=== PATIENT | female | born 1990 | race Caucasian/White ===

== ENCOUNTER 2017-05-18 15:58 | Emergency (ER) | payer MEDICAID ==
[~2017-05-18 15:58] MED LIST: JUNETAB PO; MACR100C2 PO
[2017-05-18 15:59] VITALS: BP 128/76; PULSE 112; RESP 20; TEMP 98.3; O2SAT 99
--- NOTE | 2017-05-18 16:12 | PD ---
Physical Exam Time Seen by Provider: 16:10 Narrative 26yo F c/o lower abd pain and painful sex this morning. +Vaginal odor and discharge. Denies fever, vomiting. +possibility of . Patient seen in triage. VS reviewed. Patient awaiting bed placement. Data Data Last Documented VS Vital Signs Date Time Temp Pulse Resp B/P Pulse Ox O2 Delivery O2 Flow Rate FiO2 05/18/17 15:59 98.3 112 20 128/76 99 Room Air MDM Supervised Visit with MYRIAM: Dina Florez May 18, 2017 16:12
[2017-05-18 18:22] LABS: BACTERIA, URINE RARE /hpf; BLOOD, URINE NEG (NEG); COMMENT (UR) CULT NOT INDICATED; CULTURE IF INDICATED CULT NOT INDICATED; GLUCOSE,URINE NEG (NEG); KETONE, URINE NEG (NEG); NITRITE,URINE NEG (NEG); PH, URINE 7.5 (5.0-8.5); SQUAMOUS EPITHELIAL CELL URINE 5 /hpf (0-5); URINE COLOR LIGHT-YELLOW (YELLW/STRAW)
[2017-05-19] MEDS ORDERED: METR-1 PO (00:53)
== END 2017-05-18 18:48 | disposition left against medical advice (07) ==
LOC: NED 15:58
DX: R10.30 Lower abdominal pain, unspecified (principal); N89.8 Other specified noninflammatory disorders of vagina
CPT/HCPCS: 81001; 84703; 99282

== ENCOUNTER 2017-05-18 21:43 | Emergency (ER) | payer MEDICAID ==
[2017-05-18 21:45] VITALS: BP 128/74; PULSE 85; RESP 16; TEMP 98.4; O2SAT 99
--- NOTE | 2017-05-18 22:28 | PD ---
HPI Chief Complaint: Complaint Time Seen by Provider: 22:20 Travel History International Travel<30 days: No Contact w/Intl Traveler<30days: No Traveled to known affect area: No History of Present Illness HPI 26-year-old female patient presents to the ER today for several days history of whitish vaginal discharge and dyspareunia area. She also complains of pelvic discomfort. She is sexually active but states that she is on control. She denies any new partners. She has history of irregular menses, states she had missed her menses this month. Modifying Factors: None Associated Signs & Symptoms: Vaginal discharge, dyspareunia area, irregular menses Risk Factors: None PFSH Past Medical History Medical History: Denies Significant Hx Diminished Hearing: No Tetanus Vaccination: < 5 Years Influenza Vaccination: No ?: Unknown LMP: APRIL 2017 Past Surgical History Surgical History: No Previous Surgery Social History Alcohol Use: No Tobacco Use: No Substance Use: No Allergies-Medications (Allergen,Severity, Reaction): Coded Allergies: No Known Allergies (Verified , 05/18/17) Reported Meds & Prescriptions Reported Meds & Active Scripts Active Review of Systems Except as stated in HPI: all other systems reviewed are Neg Physical Exam Narrative GENERAL: Young white female patient currently in no acute distress. Awake and oriented 3. SKIN: Focused skin assessment warm/dry. HEAD: Atraumatic. Normocephalic. EYES: Pupils equal and round. No scleral icterus. No injection or drainage. ENT: No nasal bleeding or discharge. Mucous membranes pink and moist. NECK: Trachea midline. No JVD. CARDIOVASCULAR: Regular rate and rhythm. No murmur appreciated. RESPIRATORY: No accessory muscle use. Clear to auscultation. Breath sounds equal bilaterally. GASTROINTESTINAL: Abdomen soft, mild pelvic tenderness without guarding or rebound, nondistended. Hepatic and splenic margins not palpable. GENITOURINARY: Normal external genitalia without lesions or erythema. Vaginal vault without blood but is notable for whitish greenish copious drainage. Cervical os was closed with drainage. Positive cervical motion tenderness. Uterus nontender and nonenlarged. Bilateral adnexa nontender without masses. MUSCULOSKELETAL: No obvious deformities. No clubbing. No cyanosis. No edema. NEUROLOGICAL: Awake and alert. No obvious cranial nerve deficits. Motor grossly within normal limits. Normal speech. PSYCHIATRIC: Appropriate mood and affect; insight and judgment normal. Data Data Last Documented VS Vital Signs Date Time Temp Pulse Resp B/P Pulse Ox O2 Delivery O2 Flow Rate FiO2 05/18/17 22:16 16 05/18/17 21:45 98.4 85 128/74 99 Room Air Orders Gc And Chlamydia Pcr (05/18/17 22:20) Wet Prep Profile (05/18/17 22:20) Beta Hcg (Quant/Titer) (05/18/17 22:28) Ceftriaxone Inj (Rocephin Inj) (05/18/17 23:30) Azithromycin Powd Pack (Zithromax Powd P (05/18/17 23:30) Metronidazole (Flagyl) (05/18/17 23:30) Labs Laboratory Tests Test 05/18/17 23:21 Clue Cells (Wet Prep) PRESENT Vaginal Trichomonas (Wet Prep) NONE SEEN Vaginal Yeast (Wet Prep) NONE SEEN MDM Medical Decision Making Medical Screen Exam Complete: Yes Emergency Medical Condition: Yes Medical Record Reviewed: Yes Differential Diagnosis Pelvic pain, discontinue area, vaginal dischargevaginitis versus cervicitis versus UTI versus Narrative Course Patient was seen just a few hours ago and signed out AGAINST MEDICAL ADVICE. A UA and urine has been done which is negative. However, patient states that she has had previous pregnancies where the initial urine test was negative. Pelvic exam is fairly concerning for vaginitis or cervicitis. was given empiric antibiotics for cervicitis. Wet prep returns showing bacterial vaginosis and Flagyl was given. My plan would be to release her at this point would follow-up to primary or [facility]. Return for any worsening in symptoms as needed. The plan was discussed with her and she states understanding. She will need to practice safe sex until we find out about her GC cultures. Diagnosis Primary Impression: Bacterial vaginosis Additional Impression: Vaginitis Med/Other Pt SpecificInfo: Prescription(s) given Scripts Metronidazole (Flagyl)500 Mg Hbu960 Mg PO TID 7 Days Ref 0 Prov:Abhi Gonzalez MD 05/19/17 Disposition: 01 DISCHARGE HOME Condition: Stable Abhi Gonzalez MD May 18, 2017 22:28
[2017-05-18] MEDS ORDERED: metroNIDAZOLE 500 MG TAB PO ONE (23:30)
[2017-05-18] MEDS ORDERED: AZITHROMYCIN PWD FOR SUSP 1 GM PACKET PO ONE (23:30)
[2017-05-18] MEDS ORDERED: cefTRIAXone INJ 250 MG in SODIUM CHLORIDE 0.9% INJ 100 ML IV ONE (23:30)
[2017-05-19] MEDS ORDERED: METR-1 PO (00:53)
[2017-05-19 01:15] LABS: CHLAMYDIA PCR NOT DETECTED (NOT DETECT); NEISSERIA PCR NOT DETECTED (NOT DETECT)
[2017-05-19 01:43] LABS: BETA HCG QUANT LESS THAN 1 MIU/ML (0-5)
== END 2017-05-19 01:18 | disposition home or self-care (01) ==
LOC: NEPC 21:43
DX: N76.0 Acute vaginitis (principal)
CPT/HCPCS: 84702; 87210; 87491; 87591; 96374; 99284; J0696

== ENCOUNTER → 2018-01-18 | Outpatient (CLI) | payer MEDICAID, OTHER ==
[~2018-01-18] MED LIST changes: -JUNETAB PO; -MACR100C2 PO; +METR-1 PO
== END ==
LOC: HPND 12:53
PROVIDERS: ATTEND Family Medicine
DX: Z36.82 Encounter for antenatal screening for nuchal translucency (principal)
CPT/HCPCS: 36415; 76813

== ENCOUNTER → 2018-02-21 | Outpatient (CLI) | payer MEDICAID | LOC: HPND 11:09 | PROVIDERS: ATTEND Family Medicine | DX: Z36.3 Encounter for antenatal screening for malformations (principal); O36.5120 Maternal care for known or suspected placental insufficiency, second trimester, not applicable or unspecified | CPT/HCPCS: 76805 ==

== ENCOUNTER → 2018-03-21 | Outpatient (CLI) | payer MEDICAID | LOC: HPND 11:15 | PROVIDERS: ATTEND Family Medicine | DX: O36.5120 Maternal care for known or suspected placental insufficiency, second trimester, not applicable or unspecified (principal); Z36.2 Encounter for other antenatal screening follow-up | CPT/HCPCS: 76816 ==

== ENCOUNTER 2018-07-16 20:58 | Inpatient (IN) ==
[2018-07-16] MEDS ORDERED: Sod Chloride 0.9% Inj 1,000 ML IV.CONT PRN (21:55)
[2018-07-16] MEDS ORDERED: Sodium Chlor 0.9% Inj 500 ML IV.SIG PRN (21:55)
[2018-07-16] MEDS ORDERED: fentaNYL Citrate Inj 100 MCG/2 ML Ampul IV.PUSH PRN ×2 (21:55)
[2018-07-16] MEDS ORDERED: Oxytocin 30 Units/500ml Premix 30 UNITS/500 ML BAG IV.SIG ONE (21:55)
[2018-07-16] MEDS ORDERED: Naloxone Inj 0.4 MG/ML Vial IV.PUSH PRN (21:55)
[2018-07-16] MEDS ORDERED: Citric Acid/Sodium Citrate Liq 30 ML UDC PO SCH (22:00)
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
[2018-07-16 22:39] LABS: Baso % (Auto) 0.2 % (0.0-2.0); Eos % (Auto) 0.2 % (0.0-4.0); Hematocrit 36.7 % (35.0-46.0); Hemoglobin 12.9 gm/dL (11.6-15.3); Lymph # (Auto) 2.5 th/mm3 (1.0-4.8); Mean Corpuscular HGB Conc 35.2 % (32.0-36.0); Mean Corpuscular Hemoglobin 33.8 pg (27.0-34.0); Mean Corpuscular Volume 95.9 fL (80.0-100.0); Mean Platelet Volume 6.8 fL (7.0-11.0); Mono # (Auto) 0.8 th/mm3 (0.0-0.9); Mono % (Auto) 8.5 % (0.0-8.0); Neut # (Auto) 5.9 th/mm3 (1.8-7.7); Neut % (Auto) 64.1 % (16.0-70.0); Platelet Count 259 th/mm3 (150-450); Red Blood Count 3.83 mil/mm3 (4.00-5.30); Red Cell Distribution Width 13.1 % (11.6-17.2); White Blood Count 9.2 th/mm3 (4.0-11.0)
[2018-07-16 22:55] LABS: Bilirubin,Urine Negative (Negative); Clarity,Urine Hazy (Clear); Color,Urine Yellow (Yellw/Straw); Glucose,Urine (UA) Negative (Negative); Leukocyte Esterase,Urine Trace (Negative); Mucus,Urine Few /lpf (Occasional); Nitrite,Urine Negative (Negative); Specific Gravity,Urine 1.011 (1.002-1.035); Squamous Epithelial Cell,Urine 9 /hpf (0-5)
[2018-07-16 22:57] LABS: Amphetamine Urine With Conf Neg (Neg); Benzodiazepine Urine With Conf Neg (Neg)
[2018-07-17] MEDS ORDERED: Lidocaine 1% Inj 50 ML Vial ONE (04:05)
[2018-07-17] MEDS ORDERED: Acetaminophen 325 MG Tablet PO PRN (04:24)
[2018-07-17] MEDS ORDERED: Oxytocin 30 Units/500ml Premix 30 UNITS/500 ML BAG IV.CONT PRN (04:24)
[2018-07-17] MEDS ORDERED: Naloxone Inj 0.4 MG/ML Vial IV.PUSH PRN (04:24)
[2018-07-17] MEDS ORDERED: Witch Hazel 50%/Glyderin 12.5% 40 Pad Jar RECTAL PRN (04:24)
[2018-07-17] MEDS ORDERED: Zolpidem Tartrate 5 MG Tablet PO PRN (04:24)
[2018-07-17] MEDS ORDERED: Benzocaine 20% Top Spray 60 ML Can TOPICAL PRN (04:24)
--- NOTE | 2018-07-17 04:27 | P.OBDELI ---
Weeks Gestation: 39 Medical Induction of Labor: No Artificial Rupture of Membrane: No Anesthesia: None Episiotomy: none Vaginal Delivery: Normal, Spontaneous Presentation: Occiput anterior Nuchal Cord: None Delayed Cord Clamping (45 sec): Yes Placenta: Spontaneous delivery Laceration: None Estimated blood loss (mL): 100 Infant: Female Female A Delivery Date: 07/17/18 Infant Delivery Time: 04:12 score (1 min): 8 score (5 min): 9
[2018-07-17] MEDS: Senna/Docusate Sodium 8.6/50 MG Tablet PO SCH ×2 (08:26→22:26)
[2018-07-17] MEDS ORDERED: Diphtheria/Tetanus/Pertussis Vaccine Inj 0.5 ML Syringe IM ONE (16:00)
[2018-07-17] MEDS ORDERED: Measles/Mumps/Rubella Vaccine Inj 0.5 ML Vial SQ ONE (16:00)
[2018-07-18] MEDS: Senna/Docusate Sodium 8.6/50 MG Tablet PO SCH (08:02)
[2018-07-18 08:53] VITALS: BP 110/62
[2018-07-18 08:54] VITALS: PULSE 60; RESP 20; TEMP 97.6
--- NOTE | 2018-07-18 09:06 | P.PNOB ---
Subjective Post day: 1 Interval history: Patient is a 27-year-old G4 P 4 delivered at 41 weeks and 0 days. Patient is day 1 after . Patient's pain is well-controlled. Patient reports eating and drinking without any nausea or vomiting. Patient reports minimal bleeding. Patient has not passed gas or no bowel movements. Patient is walking without lower extremity pain or shortness of breath. Patient reports desire for contraception and breast-feeding. Patient is ready to go home. Objective Vital Signs/I&O: Vital Signs 07/17/18 20:03 07/18/18 07:30 Temperature 98.0 F 97.6 F Pulse Rate 67 60 Respiratory Rate 17 20 Blood Pressure 115/58 L 110/62 Result Diagrams: 07/16/18 22:15 Objective Remarks: GENERAL: Well-nourished, well-developed patient. CARDIOVASCULAR: Regular rate and rhythm without murmurs, gallops, or rubs. RESPIRATORY: Breath sounds equal bilaterally. No accessory muscle use. ABDOMEN/GI: Abdomen soft, non-tender. Bowel sounds present. Fundus: Firm, non-tender at umbilicus. GENITOURINARY: Light to moderate bleeding. EXTREMITIES: No cyanosis or edema, non-tender, without signs of DVT. Medications and IVs: Active Medications Acetaminophen (Tylenol) 650 mg PO Q4H PRN PRN Reason: PAIN SCALE 1 TO 2 Al Hydroxide/Mg Hydroxide (Milk Of Magnesia Liq) 30 ml PO Q12H PRN PRN Reason: Mild Constipation Benzocaine (Americaine 20% [place]) 1 spray TOPICAL Q4H PRN PRN Reason: For Perineum Discomfort Last Admin: 07/17/18 09:34 Dose: 1 spray Oxytocin (Pitocin 30 Units/Ns 500 Ml Premix) 30 units in 500 mls @ 100 mls/hr IV.CONT UNSCH PRN PRN Reason: Heavy bleeding Last Admin: 07/17/18 05:26 Dose: 100 mls/hr Ibuprofen (Motrin) 800 mg PO Q8H PRN PRN Reason: For Cramping Last Admin: 07/18/18 08:02 Dose: 800 mg Naloxone HCl (Narcan Inj) 0.1 mg IV.PUSH Q2M PRN PRN Reason: for opiate reversal Ondansetron HCl (Zofran Odt) 4 mg PO Q6H PRN PRN Reason: NAUSEA OR VOMITING Oxycodone/Acetaminophen (Percocet 5/325 Mg) 1 tab PO Q4H PRN PRN Reason: PAIN SCALE 3 TO 5 Oxycodone/Acetaminophen (Percocet 5/325 Mg) 2 tab PO Q4H PRN PRN Reason: PAIN SCALE 6 TO 10 Last Admin: 07/18/18 05:03 Dose: 2 tab Senna/Docusate Sodium (Ariadna-Colace) 1 tab PO BID MABLE Last Admin: 07/18/18 08:02 Dose: 1 tab Sennosides (Senokot) 17.2 mg PO Q12H PRN PRN Reason: Moderate Constipation Sodium Chloride (Ns Flush) 2 ml IV.FLUSH BID MABLE Last Admin: 07/18/18 08:00 Dose: Not Given Sodium Chloride (Ns Flush) 2 ml IV.FLUSH PRN PRN PRN Reason: FLUSH AFTER USING IV ACCESS Witch Brigitte/Glycerin (Tucks Pads) 1 applicatio RECTAL QID PRN PRN Reason: HEMORRHOIDS Last Admin: 07/17/18 09:34 Dose: 1 applicatio Zolpidem Tartrate (Ambien) 5 mg PO HS PRN PRN Reason: SLEEP Assessment and Plan - Diagnosis (1) Normal course Code(s): Z39.2 - Encounter for routine follow-up Status: Acute - Plan Patient is a 27-year-old G4 P 4 delivered at 41 weeks and 0 days. Patient is day 1 after . Patient was counseled to do 6 weeks of pelvic rest. Patient was counseled to follow up in 6 weeks. Patient requested follow-up and contraception. --AF VSS --Continue routine care --Motrin and Percocet when necessary for pain --Encourage OOB --Pelvic rest for 6 weeks will need follow-up appointment at that time. --Anticipate discharge today
== END 2018-07-18 16:53 | disposition home or self-care (01) ==
LOC: HOBED 20:58 → H2E 22:06 → H1EA 07-17 06:03
PROVIDERS: ADMIT Obstetrics & Gynecology Maternal & Fetal Medicine; ATTEND Obstetrics & Gynecology Maternal & Fetal Medicine